=== PATIENT | female | born 1960 | race African-American/Black ===

== ENCOUNTER 2020-08-08 12:34 | Inpatient (IN) ==
[2020-08-08] MEDS ORDERED: ASPIRIN 325 MG TABLET PO STA (12:52)
[2020-08-08 13:10] LABS: Basophils % 0.4 % (0.0-0.8); Eosinophils # 0.2 10*3/uL (0.0-0.87); Eosinophils % 1.7 % (0.00-10.9); Hematocrit 35.9 VOL% (35.7-47.0); Hemoglobin 11.3 GM/DL (12.0-16.0); Immature Granulocytes % 0.7 %; Immature Granulocytes Absolute 0.06 #; Lymphocytes # 1.2 10*3/uL (1.4-4.0); Lymphocytes % 13.5 % (21.3-54.2); Mean Corpuscular HGB Conc 31.5 GM/DL (32-36); Mean Corpuscular Volume 88.2 FL (87-102); Mean Platelet Volume 10.7 FL (9.6-12.0); Monocytes % 6.5 % (1.7-12.7); Neutrophils % 77.2 % (38.7-73.9); Platelet Count 232 T/CUMM (130-400); Red Blood Count 4.07 MC/CUMM (3.8-5.5); Red Cell Distribution Width 14.3 % (9.3-17.3)
[2020-08-08 13:21] LABS: PT Patient Result 10.6 SECS (9.8-11.9); Partial Thromboplastin Time 27.7 SECS (23.9-33.8)
[2020-08-08 13:33] LABS: Albumin 3.4 G/DL (3.4-5.0); Bilirubin,Total 0.6 MG/DL (0.2-1.0); Calcium 9.7 MG/DL (8.5-10.1); Osmolality,Calculated 293.4 MOS/KG (273-304); Potassium 3.7 MMOL/L (3.5-5.1)
[2020-08-08] MEDS ORDERED: cefTRIAXone 1,000 MG in SODIUM CHLORIDE 0.9% 100 ML IV STA (13:56)
[2020-08-08] MEDS ORDERED: AZITHROMYCIN INJ 500 MG in SODIUM CHLORIDE 0.9% 250 ML IV STA (13:56)
[2020-08-08] MEDS ORDERED: PANTOPRAZOLE 40 MG VIAL IV STA (14:27)
[2020-08-08] MEDS ORDERED: SIMETHICONE CHEW 125 MG TABLET PO PRN (14:59)
[2020-08-08] MEDS ORDERED: MORPHINE 4 MG/1 ML VIAL IV PRN (14:59)
[2020-08-08] MEDS ORDERED: hydrALAZINE 20 MG/1 ML VIAL IV PRN (14:59)
[2020-08-08] MEDS ORDERED: DOCUSATE SODIUM 100 MG CAPSULE PO PRN (14:59)
[2020-08-08] MEDS ORDERED: ACETAMINOPHEN 325 MG TABLET PO PRN (14:59)
[2020-08-08] MEDS ORDERED: DEXTROSE 50% 25 GM/50 ML VIAL IV PRN (14:59)
[2020-08-08] MEDS ORDERED: GLUCAGON 1 MG VIAL IM PRN (14:59)
[2020-08-08 15:08] LABS: Ferritin 123.5 ng/ml (8-252)
[2020-08-08] MEDS ORDERED: SODIUM CHLORIDE 0.9% 250 ML IV ONE (15:41)
[2020-08-08] MEDS: INSULIN REGULAR 100 UNIT/ML SUBCUT SCH (17:10)
[2020-08-08] MEDS: PIPERACILLIN/TAZOBACTAM 3,375 MG in SODIUM CHLORIDE 0.9% 100 ML IV SCH (17:11)
[2020-08-08] MEDS: DOCOSANOL 10% CREAM 2 GM TUBE TOP SCH ×2 (18:32→22:30)
[2020-08-08] MEDS: PANTOPRAZOLE 40 MG VIAL IV SCH (20:03)
[2020-08-08 20:13] LABS: Bilirubin,Urine Negative (Negative); Blood, Urine Negative (Negative); Glucose,Urine (UA) Negative (Negative); Ketones,Urine Negative (Negative); Nitrite,Urine Negative (Negative); Protein,Urine Negative; RBC,Urine 2 /HPF (0-4); Squamous Epithelial Cell,Urine Occasional /HPF (0-10); Urine Appearance CLEAR (Clear); Urine Color Straw (Yellow); Urine Specific Gravity 1.008 (1.001-1.035); Urine Urobilinogen < 2.0 EU/DL (0.2-1.0); WBC,Urine 1 /HPF (0-6)
[2020-08-09] MEDS: PIPERACILLIN/TAZOBACTAM 3,375 MG in SODIUM CHLORIDE 0.9% 100 ML IV SCH ×2 (04:33→17:19)
[2020-08-09] MEDS: DOCOSANOL 10% CREAM 2 GM TUBE TOP SCH ×5 (06:14→23:46)
[2020-08-09 06:18] LABS: Basophils % 0.5 % (0.0-0.8); Eosinophils # 0.3 10*3/uL (0.0-0.87); Eosinophils % 4.2 % (0.00-10.9); Hematocrit 34.5 VOL% (35.7-47.0); Hemoglobin 10.5 GM/DL (12.0-16.0); Immature Granulocytes % 0.4 %; Immature Granulocytes Absolute 0.03 #; Lymphocytes # 1.4 10*3/uL (1.4-4.0); Lymphocytes % 17.9 % (21.3-54.2); Mean Corpuscular HGB Conc 30.4 GM/DL (32-36); Mean Corpuscular Volume 90.3 FL (87-102); Mean Platelet Volume 10.5 FL (9.6-12.0); Monocytes % 7.1 % (1.7-12.7); Neutrophils % 69.9 % (38.7-73.9); Platelet Count 240 T/CUMM (130-400); Red Blood Count 3.82 MC/CUMM (3.8-5.5); Red Cell Distribution Width 14.4 % (9.3-17.3); White Blood Count 7.6 T/CUMM (4-12)
[2020-08-09 06:50] LABS: Albumin 2.9 G/DL (3.4-5.0); Bilirubin,Total 2.2 MG/DL (0.2-1.0); Calcium 9.5 MG/DL (8.5-10.1); Osmolality,Calculated 288.3 MOS/KG (273-304); Total Protein 6.8 G/DL (5.0-7.5)
[2020-08-09 06:53] LABS: Risk Ratio 2.77; Thyroid Stimulating Hormone 2.57 uIU/ml (0.358-3.74); VLDL CHOLESTEROL 14.6 MG/DL
[2020-08-09] MEDS: INSULIN REGULAR 100 UNIT/ML SUBCUT SCH ×3 (08:30→17:19)
[2020-08-09] MEDS: PANTOPRAZOLE 40 MG VIAL IV SCH ×2 (08:30→21:37)
[2020-08-09] MEDS ORDERED: PANTOPRAZOLE 40 MG TABLET PO SCH (09:00)
[2020-08-09] MEDS: glyBURIDE 5 MG TABLET PO SCH (10:32)
[2020-08-09] MEDS: carvediloL 12.5 MG TABLET PO SCH ×2 (10:32→21:37)
[2020-08-09] MEDS: guaiFENesin/DM ER 600-30 MG TABLET PO PRN (14:40)
[2020-08-09] MEDS: GABAPENTIN 100 MG CAPSULE PO SCH ×2 (14:40→21:37)
[2020-08-09] MEDS: ONDANSETRON 4 MG/2 ML VIAL IV PRN (14:41)
[2020-08-10] MEDS: PIPERACILLIN/TAZOBACTAM 3,375 MG in SODIUM CHLORIDE 0.9% 100 ML IV SCH ×2 (04:56→15:48)
[2020-08-10 06:23] LABS: Basophils % 0.6 % (0.0-0.8); Eosinophils # 0.3 10*3/uL (0.0-0.87); Eosinophils % 4.7 % (0.00-10.9); Hematocrit 35.8 VOL% (35.7-47.0); Hemoglobin 10.6 GM/DL (12.0-16.0); Immature Granulocytes % 0.3 %; Immature Granulocytes Absolute 0.02 #; Lymphocytes # 1.6 10*3/uL (1.4-4.0); Mean Corpuscular HGB Conc 29.6 GM/DL (32-36); Mean Corpuscular Volume 91.6 FL (87-102); Mean Platelet Volume 10.2 FL (9.6-12.0); Monocytes % 9.7 % (1.7-12.7); Neutrophils % 61.7 % (38.7-73.9); Platelet Count 278 T/CUMM (130-400); Red Blood Count 3.91 MC/CUMM (3.8-5.5); Red Cell Distribution Width 14.2 % (9.3-17.3)
[2020-08-10] MEDS: DOCOSANOL 10% CREAM 2 GM TUBE TOP SCH ×6 (06:39→23:21)
[2020-08-10 06:51] LABS: Albumin 2.9 G/DL (3.4-5.0); Bilirubin,Total 0.6 MG/DL (0.2-1.0); Calcium 10.1 MG/DL (8.5-10.1); Osmolality,Calculated 281.3 MOS/KG (273-304); Potassium 4.1 MMOL/L (3.5-5.1); Total Protein 6.8 G/DL (5.0-7.5)
[2020-08-10] MEDS: INSULIN REGULAR 100 UNIT/ML SUBCUT SCH ×3 (07:36→15:32)
[2020-08-10] MEDS ORDERED: SODIUM CHLORIDE 0.9% 1,000 ML IV SCH (08:00)
[2020-08-10] MEDS ORDERED: DEXTROSE 5% 1,000 ML IV SCH (09:12)
[2020-08-10] MEDS ORDERED: LIDOCAINE 2% 5 ML VIAL ONE (09:24)
[2020-08-10] MEDS ORDERED: propofoL 200 MG/20 ML VIAL IV ONE (09:24)
[2020-08-10] MEDS ORDERED: hydrALAZINE 20 MG/1 ML VIAL ONE (09:56)
[2020-08-10] MEDS: carvediloL 12.5 MG TABLET PO SCH ×2 (10:00→20:53)
[2020-08-10] MEDS: PANTOPRAZOLE 40 MG VIAL IV SCH ×2 (10:00→20:54)
[2020-08-10] MEDS: glyBURIDE 5 MG TABLET PO SCH (10:00)
[2020-08-10] MEDS: GABAPENTIN 100 MG CAPSULE PO SCH ×3 (10:00→20:54)
[2020-08-10] MEDS: ONDANSETRON 4 MG/2 ML VIAL IV PRN (11:06)
[2020-08-10] MEDS: ALBUTEROL 2.5 MG/3 ML NEB RESP TX SCH ×2 (15:34→19:40)
[2020-08-11] MEDS: guaiFENesin/DM ER 600-30 MG TABLET PO PRN (00:27)
[2020-08-11] MEDS: PIPERACILLIN/TAZOBACTAM 3,375 MG in SODIUM CHLORIDE 0.9% 100 ML IV SCH (03:50)
[2020-08-11 05:51] LABS: Basophils % 0.7 % (0.0-0.8); Eosinophils # 0.5 10*3/uL (0.0-0.87); Eosinophils % 7.6 % (0.00-10.9); Hematocrit 34.4 VOL% (35.7-47.0); Hemoglobin 10.4 GM/DL (12.0-16.0); Immature Granulocytes % 1.5 %; Immature Granulocytes Absolute 0.09 #; Lymphocytes # 1.7 10*3/uL (1.4-4.0); Lymphocytes % 27.6 % (21.3-54.2); Mean Corpuscular HGB Conc 30.2 GM/DL (32-36); Mean Corpuscular Volume 91.2 FL (87-102); Mean Platelet Volume 9.9 FL (9.6-12.0); Monocytes % 10.8 % (1.7-12.7); NRBC # 0.02 10*3/uL; Neutrophils % 51.8 % (38.7-73.9); Platelet Count 262 T/CUMM (130-400); Red Blood Count 3.77 MC/CUMM (3.8-5.5); Red Cell Distribution Width 14.1 % (9.3-17.3)
[2020-08-11] MEDS: DOCOSANOL 10% CREAM 2 GM TUBE TOP SCH ×2 (06:30→10:04)
[2020-08-11 06:32] LABS: Albumin 2.7 G/DL (3.4-5.0); Bilirubin,Total 0.7 MG/DL (0.2-1.0); Calcium 9.8 MG/DL (8.5-10.1); Osmolality,Calculated 283.3 MOS/KG (273-304); Total Protein 6.6 G/DL (5.0-7.5)
[2020-08-11] MEDS: INSULIN REGULAR 100 UNIT/ML SUBCUT SCH (06:55)
[2020-08-11] MEDS: ALBUTEROL 2.5 MG/3 ML NEB RESP TX SCH (07:13)
[2020-08-11 07:44] VITALS: BP 157/86
[2020-08-11] MEDS: carvediloL 12.5 MG TABLET PO SCH (08:32)
[2020-08-11] MEDS: GABAPENTIN 100 MG CAPSULE PO SCH (08:32)
[2020-08-11] MEDS: glyBURIDE 5 MG TABLET PO SCH (08:33)
[2020-08-11] MEDS ORDERED: PANTOPRAZOLE 40 MG TABLET PO SCH (09:00)
== END 2020-08-11 10:49 | disposition home or self-care (01) | DRG 178 ==
LOC: N.ED 12:34 → N.EDINP 14:59 → N.5E 15:28
PROVIDERS: ADMIT Internal Medicine; ATTEND Internal Medicine